=== PATIENT | female | born 1950 | race Caucasian/White ===

== ENCOUNTER → 2018-04-06 | Outpatient (CLI) | payer MEDICARE, OTHER | LOC: LAB 16:35 → LAB SHORT 16:35 | PROVIDERS: Obstetrics & Gynecology Gynecology | DX: Z91.89 Other specified personal risk factors, not elsewhere classified (principal) | CPT/HCPCS: 87624; G0123 ==

== ENCOUNTER 2018-05-26 07:23 | Day surgery (SDC) | payer MEDICARE, OTHER ==
[~2018-05-26] VITALS: Ht 154.9 cm; Wt 86.4 kg
[2018-05-26] MEDS ORDERED: Bystolic10 MG PO (08:07)
[2018-05-26] MEDS ORDERED: LOSA50 PO (08:07)
[2018-05-26] MEDS ORDERED: ATOR20 PO (08:08)
[2018-05-26] MEDS ORDERED: Omeprazole20 M1 PO (08:08)
[2018-05-26] MEDS ORDERED: LEVSOD137 PO (08:08)
[2018-05-26] MEDS ORDERED: Aspir 8181 MG PO (08:09)
[2018-05-26] MEDS ORDERED: QUET25 PO (08:09)
[2018-05-26] MEDS ORDERED: OXYC10ER PO (08:09)
== END 2018-05-26 10:30 | disposition home or self-care (01) ==
LOC: ORSCSDS 07:23
PROVIDERS: Surgery
PROC: 0DBK8ZX Excision of Ascending Colon, Via Natural or Artificial Opening Endoscopic, Diagnostic (ICD-10-PCS; principal; 2018-05-26 08:45)
PROC: 0DBN8ZX Excision of Sigmoid Colon, Via Natural or Artificial Opening Endoscopic, Diagnostic (ICD-10-PCS; principal; 2018-05-26 08:45)
DX: Z12.11 Encounter for screening for malignant neoplasm of colon (principal); D12.2 Benign neoplasm of ascending colon; K63.5 Polyp of colon; K57.30 Diverticulosis of large intestine without perforation or abscess without bleeding; Z87.891 Personal history of nicotine dependence; I10 Essential (primary) hypertension; E03.9 Hypothyroidism, unspecified; G47.33 Obstructive sleep apnea (adult) (pediatric); E66.01 Morbid (severe) obesity due to excess calories; Z68.36 Body mass index [BMI] 36.0-36.9, adult; Z79.899 Other long term (current) drug therapy
CPT/HCPCS: 88305; J0330; J1980; J2405; J7040; J7120

== ENCOUNTER → 2019-04-12 | Outpatient (CLI) | payer MEDICARE, OTHER ==
[~2019-04-12] MED LIST: ATOR20 PO; Aspir 8181 MG PO; Bystolic10 MG PO; LEVSOD137 PO; LOSA50 PO; OXYC10ER PO; Omeprazole20 M1 PO; QUET25 PO
[2019-04-14 14:07] LABS: HPV 16 Negative (Negative); HPV 18 Negative (Negative); HPV OTHER HR TYPES Negative (Negative)
== END | disposition home or self-care (01) ==
LOC: LAB SHORT 18:25 → LAB 18:25
PROVIDERS: Obstetrics & Gynecology Gynecology
DX: Z91.89 Other specified personal risk factors, not elsewhere classified (principal)
CPT/HCPCS: 87624; G0123

== ENCOUNTER → 2020-07-30 | Outpatient (CLI) | payer MEDICARE, OTHER ==
[2020-07-30 17:44] LABS: Appearance, Urine Clear (Clear); Bilirubin, Urine Neg (Neg); Blood, Urine Neg (Neg); Color, Urine Yellow (P-Yellow); Glucose Qualitative, Urine Neg (Neg); Ketones, Urine Neg (Neg); Leukocyte Esterase, Urine Neg (Neg); Nitrite, Urine Neg (Neg); Protein, Urine Neg (Neg); Specific Gravity, Urine 1.005 (1.003-1.022); Urobilinogen, Urine NORM (Normal); pH, Urine 6.5 (5.0-8.0)
== END | disposition home or self-care (01) ==
LOC: LAB SHORT 14:48 → LAB 14:48
PROVIDERS: Physician Assistant Medical
DX: E03.9 Hypothyroidism, unspecified (principal); E78.2 Mixed hyperlipidemia; I10 Essential (primary) hypertension; R10.9 Unspecified abdominal pain; R53.83 Other fatigue; R06.02 Shortness of breath
CPT/HCPCS: 81003

== ENCOUNTER 2022-08-08 00:04 | Observation (INO) | payer OTHER, MEDICARE ==
[~2022-08-08] VITALS: Ht 154.9 cm; Wt 94.6 kg
[2022-08-08 06:15] LABS: BASOPHILS ABSOLUTE AUTO 0.03 K/mm3 (0.00-0.23); BASOPHILS PERCENT AUTO 0 % (0-2); EOSINOPHILS ABSOLUTE AUTO 0.03 K/mm3 (0.00-0.68); EOSINOPHILS PERCENT AUTO 0 % (0-6); Hematocrit 38.4 % (33.0-51.0); Hemoglobin 12.8 g/dL (11.5-16.0); IMMATURE GRAN ABSOLUTE AUTO 0.03 K/mm3 (0.00-0.10); IMMATURE GRAN PERCENT AUTO 0 % (0-1); LYMPHOCYTES ABSOLUTE AUTO 1.41 K/mm3 (0.84-5.20); LYMPHOCYTES PERCENT AUTO 16 % (21-46); MONOCYTES PERCENT AUTO 7 % (4-13); Mean Corpuscular HGB 31.7 pg (26.0-34.0); Mean Corpuscular HGB Conc 33.3 g/dL (31.5-36.5); Mean Corpuscular Volume 95 fL (80-100); NEUTROPHILS ABSOLUTE AUTO 6.51 K/mm3 (1.96-9.15); NEUTROPHILS PERCENT AUTO 76 % (41-73); Platelet Count 152 K/mm3 (150-400); RDW Coefficient Variation 11.9 % (11.7-14.2); RDW Standard Deviation 41.5 fL (35.1-46.3); Red Blood Cell Count 4.04 M/mm3 (3.80-5.20); White Blood Cell Count 8.61 K/mm3 (4.00-11.30)
[2022-08-08 06:33] LABS: Albumin, Blood 3.2 g/dL (3.4-5.0); Albumin/Globulin Ratio 0.8 (0.8-1.8); Bilirubin, Total 0.6 mg/dL (0.1-1.0); Bun/Creatinine Ratio 20.4 (12.0-20.0); Calcium, Blood 9.6 mg/dL (8.5-10.1); Creatinine, Blood 0.78 mg/dL (0.40-1.00); Globulin, Blood 3.8 g/dL (2.2-4.0); Magnesium, Blood 2.1 mg/dL (1.6-2.4); Potassium, Blood 4.3 mmol/L (3.5-5.5)
[2022-08-08] MEDS ORDERED: Synthroid200 MCG PO (07:17)
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
--- NOTE | 2022-08-08 16:31 | NUR ---
SHIFT SUMMARY SEE RN NOTE 1220HRS. MS ARANDA CONTINUES TO HAVE DISCOMFORT TO CENTRAL CHEST, BUT IS CONSERVATIVE WITH PAIN MEDICATIONS. SHE SAID PAIN IS CONTROLLED IN A TOLERABLE LEVEL WITH MEDS, ICE PACK AND REPOSITIONING. UP TO BEDSIDE COMMODE WITH 1 PERSON ASSIST. NO NAUSEA. ON CONT PULSE OX, SATURATING IN THE 90S ON ROOM AIR. NO CALLS FROM CONTROL DIRECTOR. BED LOW, CALL LIGHT IN REACH.
--- NOTE | 2022-08-08 17:29 | NUR ---
RN NOTE MS ARANDA REQUESTED OMEPRAZOLE 20MG PO FOR GERD. SHE SAID SHE NORMALLY TAKES IT AT BEDTIME AND DID NOT TAKE IT LAST NIGHT. DR WISEMAN GAVE TELEPHONE ORDER FOR OMEPROZOLE 20MG PO QD. 1ST DOSE ORDERED FOR NOW PER PT REQUEST, THEN NEXT DOSE 08/09 BEDTIME.
--- NOTE | 2022-08-09 05:07 | NUR ---
SHIFT SUMMARY: PATIENT CONTINUES TO REPORT MID-STERNAL PAIN THAT INCREASES SIGNIFICATLY WITH MOVEMENT. MEDICATED WITH OXYCODONE 10MG X2 THIS SHIFT WITH GOOD EFFECT. PATIENT ALSO REPORTED TAKING SEROQUEL 50MG QHS AT HOME. DR MONET IS NOTIFIED AND ORDER WAS OBTAINED. PATIENT REPORTS GOOD EFFECT FROM ALL MEDS GIVEN AND GOOD RESTFULL SLEEP THIS SHIFT.
--- NOTE | 2022-08-09 16:12 | NUR ---
SHIFT SUMMARY NO ACUTE CHANGES THIS SHIFT. MODERATE PAIN THROGHOUT SHIFT, MEDICATE PER EMAR. PATIENT IS EATING, DRINKING, & VOIDING WELL. 1P ASSIT TO BSC. CALLS APPROPRIATELY, WILL REPORT TO ONCOMING RN.
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
--- NOTE | 2022-08-10 18:22 | NUR ---
DISCHARGE PT PROVIDED WITH WRITTEN AND VERBAL DISCHARGE INSTRUCTIONS, SHE REPORTED UNDERSTANDING. PAIN MANAGED AT TIME OF DISCHARGE. PRESCRIPTION PROVIDED FOR PAIN MEDICATION BY HOSPITALIST. PT ESCORTED OUT IN W/C AT APPROXIMATELY 1750.
== END 2022-08-10 17:50 | disposition home or self-care (01) ==
LOC: ER 00:04 → SURS 00:05
PROVIDERS: Student in an Organized Health Care Education/Training Program; ADMIT Internal Medicine
DX: S22.20XA Unspecified fracture of sternum, initial encounter for closed fracture (principal); V49.49XA Driver injured in collision with other motor vehicles in traffic accident, initial encounter; I10 Essential (primary) hypertension; E03.9 Hypothyroidism, unspecified; Z96.653 Presence of artificial knee joint, bilateral; Z88.5 Allergy status to narcotic agent; Z88.0 Allergy status to penicillin; Z88.8 Allergy status to other drugs, medicaments and biological substances; E78.5 Hyperlipidemia, unspecified
CPT/HCPCS: 36415; 71045; 71260; 73562-RT; 74177; 80053; 83735; 84484; 85025; 93005; 93010; 94762; 96376; A9270; G0378; J1170; J3010; Q9967

== ENCOUNTER → 2022-11-30 | Outpatient (CLI) | payer OTHER, MEDICARE ==
[~2022-11-30] MED LIST changes: +Synthroid200 MCG PO
[2022-12-04 15:12] LABS: HPV 16 Negative (Negative); HPV 18 Negative (Negative); HPV OTHER HR TYPES Negative (Negative)
== END | disposition home or self-care (01) ==
LOC: RAD SHORT 15:30
PROVIDERS: Registered Nurse Community Health
DX: Z12.4 Encounter for screening for malignant neoplasm of cervix (principal)
CPT/HCPCS: 87624; G0145

== ENCOUNTER 2023-09-16 09:24 | Day surgery (SDC) | payer MEDICARE, OTHER ==
[~2023-09-16] VITALS: Ht 157.5 cm; Wt 85.4 kg
[2023-09-16] MEDS ORDERED: CELE200 (09:57)
[2023-09-16] MEDS ORDERED: ERGO50000 (09:57)
[2023-09-16] MEDS ORDERED: TELM80 (09:58)
--- NOTE | 2023-09-16 12:20 | NUR ---
09/16/23 1220 SACERSHANIQUE NACL 15MLS USED FOR POLYP INJECTION
[2023-09-16 12:52] VITALS: BP 115/74
== END 2023-09-16 12:55 | disposition home or self-care (01) ==
LOC: ORSCSDS 09:24
PROVIDERS: Internal Medicine Gastroenterology
PROC: 0DBK8ZX Excision of Ascending Colon, Via Natural or Artificial Opening Endoscopic, Diagnostic (ICD-10-PCS; principal; 2023-09-16 10:45)
PROC: 0DBH8ZX Excision of Cecum, Via Natural or Artificial Opening Endoscopic, Diagnostic (ICD-10-PCS; principal; 2023-09-16 10:45)
PROC: 0DB78ZX Excision of Stomach, Pylorus, Via Natural or Artificial Opening Endoscopic, Diagnostic (ICD-10-PCS; principal; 2023-09-16 10:45)
PROC: 0DBN8ZX Excision of Sigmoid Colon, Via Natural or Artificial Opening Endoscopic, Diagnostic (ICD-10-PCS; principal; 2023-09-16 10:45)
PROC: 0DBL8ZX Excision of Transverse Colon, Via Natural or Artificial Opening Endoscopic, Diagnostic (ICD-10-PCS; principal; 2023-09-16 10:45)
DX: R13.10 Dysphagia, unspecified (principal); R10.13 Epigastric pain; K21.9 Gastro-esophageal reflux disease without esophagitis; Z85.038 Personal history of other malignant neoplasm of large intestine; Z86.010 Personal history of colon polyps; K31.7 Polyp of stomach and duodenum; D12.3 Benign neoplasm of transverse colon; D12.2 Benign neoplasm of ascending colon; K63.5 Polyp of colon; K57.30 Diverticulosis of large intestine without perforation or abscess without bleeding; K64.8 Other hemorrhoids; K44.9 Diaphragmatic hernia without obstruction or gangrene; E03.9 Hypothyroidism, unspecified; E66.9 Obesity, unspecified; Z68.36 Body mass index [BMI] 36.0-36.9, adult; Z87.891 Personal history of nicotine dependence; G47.33 Obstructive sleep apnea (adult) (pediatric); Z79.899 Other long term (current) drug therapy
CPT/HCPCS: 88305; 88342; J2001; J2704